=== PATIENT | female | born 1965 | race African-American/Black ===

== ENCOUNTER 2021-05-28 11:54 | Outpatient (CLI) | payer OTHER ==
[2021-05-28 23:44] LABS: SARS-CoV-2 PCR by NAA Not Detected (NotDetected)
== END 2021-05-28 11:55 | disposition home or self-care (01) ==
LOC: LABBT 11:54
PROVIDERS: ATTEND Family Medicine
DX: Z01.812 Encounter for preprocedural laboratory examination (principal); Z20.822 Contact with and (suspected) exposure to COVID-19
CPT/HCPCS: U0003; U0005

== ENCOUNTER 2021-06-11 11:09 | Outpatient (CLI) | payer OTHER ==
[2021-06-11 20:28] LABS: SARS-CoV-2 PCR by NAA Not Detected (NotDetected)
== END 2021-06-11 11:10 | disposition home or self-care (01) ==
LOC: LABBT 11:09
PROVIDERS: ATTEND Specialist
DX: Z01.812 Encounter for preprocedural laboratory examination (principal); Z20.822 Contact with and (suspected) exposure to COVID-19
CPT/HCPCS: U0003; U0005

== ENCOUNTER 2022-01-29 08:25 | Outpatient (CLI) | payer OTHER | END 2022-01-29 08:26 | disposition home or self-care (01) | LOC: LABBT 08:25 | PROVIDERS: ATTEND Specialist | DX: Z20.822 Contact with and (suspected) exposure to COVID-19 (principal) | CPT/HCPCS: 87811 ==

== ENCOUNTER 2022-03-25 12:40 | Outpatient (CLI) | payer OTHER | END 2022-03-25 12:41 | disposition home or self-care (01) | LOC: LABBT 12:40 | PROVIDERS: ATTEND Specialist | DX: Z20.822 Contact with and (suspected) exposure to COVID-19 (principal) | CPT/HCPCS: 87811 ==